=== PATIENT | female | born 1935 | race Caucasian/White ===

== ENCOUNTER 2016-08-02 16:57 | Emergency (ER) | payer OTHER ==
[~2016-08-02] VITALS: Ht 167.6 cm; Wt 63.5 kg
--- NOTE | ~2016-08-02 | EKG ---
[place] [address] [email or web address] [address] ELECTROCARDIOGRAM REPORT Name: MICHELLE BONNER Room #: DEP Umer#: [id number] Admission: 08/02/16 Attend Phys: Discharge: 08/02/16 Date of : 37 Report #: [id number] THIS REPORT FOR: //name// [facility] ED Test Date: 2016-08-02 Test Time: 17:27:55 Pat Name: MICHELLE BONNER Department: Room: Gender: F [employer]ging [employer]isher: tina : 1935 Requested By: Amy Vargas Order Number: [id number] MD: Karthikeyan Doan Measurements Intervals Schneider Rate: 72 P: 42 ND: 150 QRS: -1 QRSD: 134 T: -7 QT: 429 QTc: 470 Interpretive Statements Sinus rhythm Atrial premature complex Right bundle branch block Compared to ECG 09/27/2014 08:01:31 Atrial premature complex(es) now present Electronically Signed On 08-03-2016 14:02:29 CDT by Karthikeyan Doan [email or web address] <ELECTRONICALLY SIGNED> By: Karthikeyan Doan MD, [facility] 08/03/16 1402 26 26 Karthikeyan Doan MD, [facility] /EPI
[~2016-08-02 16:57] MED LIST: ASPIR 8181 M1 PO; ATIVAN0.5 MG PO; COLACE100 MG PO; COUMADIN 2 MG TA2 M1 PO; ENOXAPARIN40 MG/0.1 SUBQ; GABAPENTIN 100100 MG PO; IRON325 PO; KLOR-CON 1010 MEQ PO; LASIX 40 MG TAB40 M2 PO; LEVAQUIN 500 M500 M2 PO; LEVOTHYROXIN0.088 MG PO; NAMENDA 10 MG T10 MG PO; PRAVACHOL40 MG PO; PROTONIX40 M1 PO; RIVASTIGMINE3 MG PO; SENNA PO; SYSTANE 0.3-0.1 EACH OPHTHALMIC; UNICOMPLEX M TA1 TA1 PO; VERAPAMIL SR240 MG PO; ZYPREXA5 MG PO
[2016-08-02] MEDS ORDERED: TYLENOL325 MG PO (17:20)
[2016-08-02] MEDS ORDERED: HYDROCODONE-AP1 EAC6 PO (17:21)
[2016-08-02] MEDS ORDERED: SORINE 80 MG TA80 M1 PO (17:22)
[2016-08-02] MEDS ORDERED: SYSTANE GEL10 GM OPHTHALMIC (17:22)
[2016-08-02] MEDS ORDERED: ATIVAN0.5 MG PO (17:23)
[2016-08-02] MEDS ORDERED: REMERON15 MG PO (17:24)
[2016-08-02] MEDS ORDERED: LEVAQUIN 250 M250 MG PO (17:24)
[2016-08-02] MEDS ORDERED: CARDIZEM CD240 MG PO (17:25)
[2016-08-02 17:56] LABS: ABSOLUTE NEUTROPHILS 6.1 thou/uL (1.4-8.2); BASOPHILS 1.3 % (0.0-2.0); HEMATOCRIT 42.4 % (37.0-47.0); HEMOGLOBIN 14.2 gm/dL (12.0-15.0); LYMPHOCYTES 24.2 % (24.0-44.0); MANUAL DIFF NO; MCH 27.4 pg (26.0-34.0); MCHC 33.4 g/dL (28.0-37.0); MCV 81.9 fL (80.0-100.0); MONOCYTES 11.3 % (1.0-8.0); PLATELET COUNT 287 thou/uL (150-400); POLYS 60.2 % (36.0-66.0); RBC 5.17 mil/uL (4.20-5.00); RDW 17.2 % (10.5-14.5); WBC 10.1 thou/uL (4.0-11.0)
[2016-08-02 17:56] LABS: URINE BILIRUBIN NEGATIVE (Negative); URINE BLOOD TRACE (Negative); URINE COLOR YELLOW; URINE GLUCOSE-RANDOM* NEGATIVE (Negative); URINE KETONES NEGATIVE (Negative); URINE NITRITE POSITIVE (Negative); URINE PROTEIN (DIPSTICK) NEGATIVE (Negative); URINE SPECIFIC GRAVITY 1.015 (1.003-1.035)
[2016-08-02 18:03] LABS: ANION GAP 8 mmol/L (7-16); BUN 14 mg/dL (7-18); CALCIUM 9.1 mg/dL (8.5-10.1); CHLORIDE 110 mmol/L (98-107); CO2 27 mmol/L (21-32); CREATININE 0.8 mg/dL (0.6-1.0); GLUCOSE 94 mg/dL (74-106); POTASSIUM 3.4 mmol/L (3.5-5.1); SODIUM 145 mmol/L (136-145)
[2016-08-02 18:04] LABS: BACTERIA >30 Many /HPF (None Seen); CASTS None Seen /LPF (None Seen); CRYSTALS None Seen /LPF (None Seen); SQUAMOUS 0-3 Few /LPF (0-3); URINE RBC 0-2 Rare /HPF (0-2); URINE WBC 6-15 Few /HPF (0-5)
[2016-08-02 18:12] LABS: TROPONIN-I < 0.04 ng/mL (<0.04-0.07)
[2016-08-02] MEDS ORDERED: KEFLEX500 MG PO (18:21)
== END 2016-08-02 21:13 ==
LOC: ER 16:57
PROVIDERS: Emergency Medicine
DX: F03.90 Unspecified dementia, unspecified severity, without behavioral disturbance, psychotic disturbance, mood disturbance, and anxiety (principal); R41.0 Disorientation, unspecified; N39.0 Urinary tract infection, site not specified; E78.5 Hyperlipidemia, unspecified; E03.9 Hypothyroidism, unspecified; M81.0 Age-related osteoporosis without current pathological fracture; E11.9 Type 2 diabetes mellitus without complications; Z88.5 Allergy status to narcotic agent; Z91.041 Radiographic dye allergy status; Z88.8 Allergy status to other drugs, medicaments and biological substances